=== PATIENT | female | born 1975 | race Caucasian/White ===

== ENCOUNTER 2024-03-29 17:53 | Emergency (ER) | payer BC, SELFPAY ==
[2024-03-29 18:01] VITALS: BP 135/91; PULSE 81; RESP 18; TEMP 36.7; O2SAT 99; BMI 24.4
--- NOTE | 2024-03-29 18:07 | ED_ITS ---
HPI - General Adult General Chief complaint: Chest Pain Stated complaint: Chest Pain Time Seen by Provider: 03/29/24 18:04 History of Present Illness HPI narrative: last night having some chest pains that were shooting electrical, off and on for 1 hour. today continued to have off and on , denies having at this time. 48 year old woman presenting to the emergency department concern of shooting chest pains, electrical she notes that were going on and off for about an hour last night around the time she is going to bed. Just could not seem to get them to calm down but eventually fell asleep. Does not sound to be have been associated with shortness of breath or nausea. She notes she did not have any jaw pain or arm pain. When a occurred again today toward the end of the meeting she just thought she should get checked out in case something more was up. I ask about palpitations and she says she has had those before but that is not with this was. She did have some lab work done in October presumably all normal in anticipation of surgery including breast augmentation. Does not sound as though there were any complications from either though. Otherwise she has been well other than just a rather stressful job. Does have well-controlled diabetes she notes as well as some hypertension Related Data Home Medications ?Medication ?Instructions ?Recorded ?Confirmed lisinopril 40 mg tablet 40 mg PO DAILY 03/29/24 03/29/24 tirzepatide 5 mg/0.5 mL 5 mg subcut 03/29/24 subcutaneous pen injector (Sonunabramro) Allergies Allergy/AdvReac Type Severity Reaction Status Date / Time cetirizine [From Zyrtec] Allergy Intermediate Verified 03/29/24 18:05 povidone-iodine Allergy Mild Verified 03/29/24 18:05 [From Betadine] Review of Systems Status of ROS: Reports: 6 or more systems reviewed and unremarkable except as noted in History and below [facility] Medical History Hypertension ?I10 - Essential (primary) hypertension (ICD-10) DM (diabetes mellitus), type 2 ?E11.9 - Type 2 diabetes mellitus without complications (ICD-10) Social History Smoking Status: Never smoker Do you use any of these nicotine containing products: None How often do you have a drink containing alcohol: monthly or less How many standard drinks containing alcohol do you have on a typical day: 1 or 2 How often do you have six or more drinks on one occasion: Never AUDIT-C Alcohol total score: 1 Non-prescribed substance use: denies use service: No Exam Narrative: Exam Narrative: Very pleasant. NAD. Skin is warm and dry. Breathing easily. Heart is in regular rate and rhythm without murmur rub or gallop. Lungs appear to be clear. Extremities are well perfused without edema. Discomfort is not reproducible to palpation over the chest. No epigastric pain. Const: Vital Signs, click to edit/add: Vital Signs - 24 hr 03/29/24 18:01 03/29/24 19:51 Temperature 98.1 F Pulse Rate [Pulse Oximeter] 81 72 Respiratory Rate 18 18 Blood Pressure [Ri t Upper Arm] 135/91 H 113/82 Pulse Oximetry 99 98 Oxygen Delivery Me thod Room Air Room Air Documenting provider has reviewed patient's vital signs: yes Course Vital Signs Vital signs: Initial Vital Signs Temperature 98.1 F 03/29/24 18:01 Temperature Source Temporal Artery Scan 03/29/24 18:01 Pulse Rate 81 03/29/24 18:01 Respiratory Rate 18 03/29/24 18:01 Blood Pressure 135/91 H 03/29/24 18:01 Blood Pressure Mean 105 03/29/24 18:01 Blood Pressure Position Sitting 03/29/24 18:01 Pulse Oximetry 99 03/29/24 18:01 Oxygen Delivery Method Room Air 03/29/24 18:01 Vital Signs Temperature 98.1 F 03/29/24 18:01 Pulse Rate 81 03/29/24 18:01 Respiratory Rate 18 03/29/24 18:01 Blood Pressure 135/91 H 03/29/24 18:01 Pulse Oximetry 99 03/29/24 18:01 Oxygen Delivery Method Room Air 03/29/24 18:01 Temperature 98.1 F 03/29/24 18:01 Pulse Rate 72 03/29/24 19:51 Respiratory Rate 18 03/29/24 19:51 Blood Pressure 113/82 03/29/24 19:51 Pulse Oximetry 98 03/29/24 19:51 Oxygen Delivery Method Room Air 03/29/24 19:51 Medical Decision Making MDM Narrative Medical decision making narrative: Type of pain certainly is puzzling. I do not know if it is related to the surgery though seems unusual to be intermittent then and not reproducible. Does not appear to be ischemic really but I suppose that is possible. Possible palpitations? Other vascular spasm or irritation in the chest? Evolving costochondritis? Would check EKG looking for any indication of arrhythmia. After further discussion with more recent event also just check basic labs including troponin; still within detectable window. If there had been some ischemic injury would be identifiable as well as then confirming good renal function and chemistries. EKG is reassuring as below. Labs are also normal. No further events noted during time of observation in the emergency department. See patient discharge plan for further discussion Lab Data Lab results reviewed: Yes I reviewed the patient's lab results Labs: Lab Results 03/29/24 Range/Units 18:40 Sodium 136 (135-149) mmol/L Potassium 3.8 (3.6-5.1) mmol/L Chloride 106 (96-114) mmol/L Carbon Dioxide 21 (20-32) mmol/L Anion Gap 9 (7-15) mEq/L BUN 17 (5-24) mg/dL Creatinine 0.8 (0.5-1.5) mg/dL Estimated Creat Clear 76.54 Estimated GFR 90 ml/min Glucose 84 (60-115) mg/dL Calcium 8.9 (8.4-10.6) mg/dL Magnesium 2.1 (1.5-2.6) mg/dL Troponin I < 0.01 L (0.01-0.04) ng/mL C-Reactive Protein < 0.5 L (0.5-1.0) mg/dL Lab Acknowledgement Test Added ECG Data Attestation: I personally reviewed and interpreted this ECG as follows: (Normal sinus rhythm at 75) Discharge Plan Discharge Clinical Impression: Atypical chest pain Patient Disposition: Home, Self-Care Condition: Improved Additional Instructions: Hope you can sleep well tonight. Workup was reassuring today. If symptoms continue to return transiently, would consider following up in primary care for further evaluation. Otherwise return for persistence of pain, shortness of breath, associated lightheadedness. Prescriptions: No Action lisinopril 40 mg tablet 40 mg PO DAILY Mounjaro 5 mg/0.5 mL pen injector 5 mg subcut Follow Up/Referrals: Lizy Giron MD [Staff Physician] - Stand Alone Forms: [employer] Info Instructions
[2024-03-29 19:03] LABS: Chloride* 106 mmol/L (96-114); Potassium* 3.8 mmol/L (3.6-5.1); Sodium* 136 mmol/L (135-149)
[2024-03-29 19:06] LABS: Creatinine* 0.8 mg/dL (0.5-1.5); Est. Creatinine Clearance* 76.54; Estimated Glomerular Filt Rate 90 ml/min
[2024-03-29 19:07] LABS: Anion Gap 9 mEq/L (7-15); Blood Urea Nitrogen* 17 mg/dL (5-24); Calcium* 8.9 mg/dL (8.4-10.6); Carbon Dioxide* 21 mmol/L (20-32); Glucose* 84 mg/dL (60-115)
[2024-03-29 19:08] LABS: Magnesium* 2.1 mg/dL (1.5-2.6)
[2024-03-29 19:12] LABS: C Reactive Protein* < 0.5 mg/dL (0.5-1.0)
[2024-03-29 19:24] LABS: Troponin I* < 0.01 ng/mL (0.01-0.04)
[2024-03-29 19:51] VITALS: BP 113/82; PULSE 72; RESP 18; O2SAT 98
== END 2024-03-29 19:58 | disposition home or self-care (01) ==
PROVIDERS: Emergency Provider Family Medicine; PCP Family Medicine
DX: R07.89 Other chest pain (principal)
CPT/HCPCS: 36415; 80048; 83735; 84484; 86140; 99284

== ENCOUNTER 2025-02-08 07:59 | Outpatient (CLI) | payer OTHER, SELFPAY ==
--- NOTE | 2025-02-08 08:30 | CRLHL7_ITS ---
For Patients: As a result of the Century Cures Act, medical imaging exams and procedure reports are released immediately into your electronic medical record. You may view this report before your referring provider. If you have questions, please contact your health care provider. XR DXA BONE MINERAL DENSITY (BMD) Current height (in): 65.5. Weight (lb): 170.0. Menopause age: Premenopausal. Ethnicity: White. Reason for exam: Osteoporosis. 1. Have you had a previous hip or vertebral fracture? No. 2. Have you had any fractures during your adult life which did not result from significant trauma (e.g., auto accident)? No. 3. Did either of your parents have a hip fracture? No. 4. Do you smoke? No. 5. Have you ever taken Glucocorticoids? Yes. 6. Do you have rheumatoid arthritis? No. 7. Do you have secondary osteoporosis? No. 8. Do you drink 3 or more alcoholic drinks per day? No. 9. Are you being treated for osteoporosis? No. 10. Have you ever taken any of the following medications: Actonel, Evista, Fosamax, Miacalcin, Reclast, Boniva, Forteo, HRT (i.e. estrogen/hormone therapy), Protelos, Prolia, Vitamin D, Calcium, other ??? please specify. ANSWER: Yes, HRT, calcium. 11. Do you have any of the following medical conditions: Anorexia or bulimia, asthma or emphysema, end stage renal disease, hyperparathyroidism, any seizure disorders, cancer, inflammatory bowel diseases, hysterectomy, other ??? please specify. ANSWER: No. 12. What was your maximum height (inches)? 65.5. 13. Do you perform weight bearing exercise regularly? No. 14. Do you regularly consume dairy products? Yes. 15. Do you drink caffeinated beverages? Yes. 16. At what age did your period start? 14. 17. Are you premenopausal? Yes. 18. How many full-term pregnancies have you had? 2. 19. Have you ever missed your period for more than 6 months in a row (not including or menopause)? No. TECHNIQUE: Bone mineral density study was performed using the [employer]. FINDINGS: The results of the study expressed as bone mineral density (BMD) are as follows: Lumbar spine L1 to L4: BMD: 1.212 g/cm2. T-score: 1.5. Z-score: 2.3 Neck Left: BMD: 0.770 g/cm2. T-score: -0.7. Z-score: 0.1 Right: BMD: 0.821 g/cm2. T-score: -0.3. Z-score: 0.5 Total Left: BMD: 0.884 g/cm2. T-score: -0.5. Z-score: 0.0 Right: BMD: 0.920 g/cm2. T-score: -0.2. Z-score: 0.3 IMPRESSION: Normal bone density. Kylee Braxton M.D. Diagnostic/Breast Radiologist [email or web address] Transcribed: 11:34 am DW/Dictated by: Kylee Braxton MD @ 02/10/2025 9:43:00 AM (Electronically Signed)
[2025-02-08 10:11] LABS: Free T4 Free Thyroxine* 1.28 ng/dL (0.70-1.85)
[2025-02-08 10:21] LABS: Hematocrit 43.0 % (33.0-51.0); Hemoglobin* 14.4 gm/dL (12.0-16.0); Immature Granulocytes Abs Auto 0.01 K/uL (0.00-0.30); Immature Granulocytes Pct Auto 0.2 %; Lymphocytes Absolute Auto 1.63 K/uL (0.90-2.90); Mean Corpuscular HGB Conc 34 gm/dL (32-36); Mean Corpuscular Hemoglobin 31 pg (26-34); Mean Corpuscular Volume 92 fL (80-100); RDW Coefficient of Variation % 12.1 % (11.5-15.5); Red Blood Count 4.70 m/uL (4.00-5.20); Slide Review Reflex No; White Blood Count* 6.33 K/uL (4.50-11.00)
[2025-02-08 10:29] LABS: Albumin* 4.5 g/dL (3.3-5.0); Chloride* 106 mmol/L (96-114); Sodium* 138 mmol/L (135-149)
[2025-02-08 10:30] LABS: Potassium* 4.6 mmol/L (3.6-5.1)
[2025-02-08 10:32] LABS: Alanine Aminotransferase* 16 U/L (4-35); Alkaline Phosphatase* 96 U/L (40-150); Anion Gap 8 mEq/L (7-15); Aspartate Amino Transferase* 27 U/L (12-35); Bilirubin Total* 0.6 mg/dL (0.1-1.5); Blood Urea Nitrogen* 12 mg/dL (7-30); Carbon Dioxide* 24 mmol/L (20-32); Cholesterol* 178 mg/dL (90-199); Creatinine* 0.9 mg/dL (0.5-1.5); Estimated Glomerular Filt Rate 78 ml/min; Total Protein* 7.7 g/dL (6.0-8.3); Triglycerides* 91 mg/dL (40-149)
[2025-02-08 10:33] LABS: Calcium* 9.7 mg/dL (8.4-10.6); Glucose* 88 mg/dL (60-115); HDL Cholesterol* 60 mg/dL (>=50)
[2025-02-08 10:51] LABS: Vitamin D 25 Hydroxy* 40 ng/mL (30-80)
[2025-02-08 11:21] LABS: Vitamin B12* 876 pg/mL (243-894)
[2025-02-10 14:17] LABS: Insulin, Fasting 12 uIU/mL (3-25)
[2025-02-15 00:26] LABS: Testosterone, Free LC-MS/MS 2.0 pg/mL (1.1-5.8); Testosterone, LC-MS/MS 15 ng/dL (9-55)
== END 2025-02-08 08:00 | disposition home or self-care (01) ==
LOC: RAD 07:59
PROVIDERS: PCP Family Medicine; Visit Provider Nurse Practitioner Family
DX: Z13.820 Encounter for screening for osteoporosis (principal); R68.82 Decreased libido; R63.5 Abnormal weight gain; R53.83 Other fatigue
CPT/HCPCS: 36415; 77080; 80053; 80061; 82306; 82607; 83036; 83525; 84270; 84402; 84403; 84439; 84443; 85025